=== PATIENT | female | born 1965 | race Two or more races ===

== ENCOUNTER 2017-03-31 12:34 | Emergency (ER) | payer SELFPAY ==
[2017-03-31 12:47] VITALS: BP 130/87; PULSE 73; TEMP 98; BMI 38.0
--- NOTE | 2017-03-31 13:35 | PDOC ---
History of Present Illness - General Chief Complaint: Back Pain Stated Complaint: PAIN Time Seen by Provider: 03/31/17 13:32 History Source: Patient Exam Limitations: No Limitations - History of Present Illness Initial Comments: 03/31/17 14:02 My chief complaint: Left-sided lower back pain radiating down her left leg to foot with tingling of foot since yesterday History of present illness: Patient is a 51 year old female with a history of iaj-vifmdlq-vwsvbwnyh diabetes, GERD, hypertension and gastric bypass 2 years ago here today complaining of left-sided lower back pain radiating down her left leg with tingling of her left foot after let lifting heavy bags yesterday on each hand. Patient denies any previous back issues. Patient denies any saddle anesthesia or any incontinency. Occurred: reports: yesterday Severity: reports: severe (left sided radiating down rt. leg to foot ) Pain Location: reports: back (left lower back down left leg to foot ) Method of Injury: Yes: other (lifted bags yesterday ) Modifying Factors: improves with: None Loss of Consciousness: no loss of consciousness Associated Symptoms (Fall): denies symptoms Past History - Past Medical History Allergies/Adverse Reactions: Allergies Allergy/AdvReac Type Severity Reaction Status Date / Time No Known Allergies Allergy Verified 03/31/17 12:38 Home Medications: Ambulatory Orders Cyclobenzaprine HCl [Flexeril -] 10 mg PO Q8H PRN #21 tablet 03/31/17 Diabetes: Yes HTN: Yes - Surgical History Abdominal Surgery: Yes (gastric bypass.) - Psycho/Social/Smoking Cessation Hx Suicidal Ideation: No Smoking History: Never smoked Review of Systems - Review of Systems Able to Perform ROS?: Yes Constitutional: No: Symptoms Reported HEENTM: No: Symptoms Reported Respiratory: No: Symptoms reported Cardiac (ROS): No: Symptoms Reported ABD/GI: No: Symptoms Reported : No: Symptoms Reported Musculoskeletal: Yes: Back Pain (left lumbar back pain radiates down left leg, tingling of foot) Integumentary: No: Symptoms Reported Neurological: Yes: Tingling (left foot) *Physical Exam - Vital Signs Last Vital Signs Temp Pulse Resp BP Pulse Ox 98 F 73 19 130/87 100 03/31/17 12:39 03/31/17 12:39 03/31/17 12:39 03/31/17 12:39 03/31/17 12:39 - Physical Exam General Appearance: Yes: Appropriately Dressed Respiratory/Chest: positive: Lungs Clear, Normal Breath Sounds. negative: Chest Tender, Respiratory Distress Cardiovascular: positive: Regular Rhythm, Regular Rate, S1, S2 Musculoskeletal: positive: Normal Inspection, Muscle Spasm (left lumbar paraspinal muscles). negative: CVA Tenderness, CVA Tenderness (R), CVA Tenderness (L), Decreased Range of Motion, Vertebral Tenderness Extremity: positive: Normal Capillary Refill, Normal Inspection. negative: Normal Range of Motion (with extension left leg at hip) Integumentary: positive: Normal Color Neurologic: positive: Alert (motor strength left leg 3/4), Normal Response, Respond to painful stimul (left leg/foot ), Responsive, Other (+ SLR left 30 degrees). negative: Numbness, Sensory Deficit (left leg) Deep Tendon Reflexes: Knee (L): 4+ Medical Decision Making - Medical Decision Making 03/31/17 14:03 Patient is a 51 year old female with a history of lha-sgylxro-pgpwyntks diabetes , GERD, hypertension and gastric bypass 2 years ago here today complaining of left-sided lower back pain radiating down her left leg with tingling of her left foot after let lifting heavy bags yesterday on each hand. Patient denies any previous back issues. Patient denies any saddle anesthesia or any incontinency. She took ibuprofen 1200 mg approximately one hour prior to arrival here. She reports the pain in her left lower back and down her leg is severe. Left lower back pain with radiculopathy left leg Plan: Valium 5 mg by mouth now Acetaminophen 975 mg by mouth now X-ray lumbar sacral spine no acute pathology appreciated per Dr. Kent 03/31/17 14:04 03/31/17 15:13 FLEXERIL 10 MG EVERY 8 HRS PRN MUSCLE SPASM # 20 TABS FOLLOW UP WITH ORTHOPEDIST 03/31/17 15:14 *DC/Admit/Observation/Transfer Diagnosis at time of Disposition: Lumbar pain with radiation down left leg - Discharge Dispostion Disposition: HOME Condition at time of disposition: Stable - Prescriptions Prescriptions: Cyclobenzaprine HCl [Flexeril -] 10 mg PO Q8H PRN #21 tablet PRN Reason: Muscle Spasms - Referrals Referrals: Hola Curry MD [Staff Physician] - - Patient Instructions Additional Instructions: Avoid carrying any items or doing any exercise or bending Follow up with orthopedist on 04/02/2017 for further evaluation Take ibuprofen as previously ordered for pain along with medication ordered today if you have any muscle spasm Return to emergency room if symptoms worsen or new symptoms develop Patient voiced understanding of discharge instructions and all questions were answered Evite llevar cualquier artculo o hacer cualquier ejercicio o doblar Seguimiento con ortopedista el 04/02/2017 para yany evaluacin posterior [place] ibuprofen gabrielle se orden anteriormente para el dolor junto con la medicaci n ordenada hoy si tiene cualquier espasmo muscular Regreso a la zia de emergencias si los sntomas empeoran o si aparecen nuevos s ntomas Comprensin del paciente sobre las instrucciones de sue y todas las preguntas fueron contestadas
[2017-03-31] MEDS ORDERED: ACETAMINOPHEN 325 MG TABLET (FP) PO ONE (13:55)
[2017-03-31] MEDS ORDERED: diazePAM 5 MG TABLET PO ONE (13:55)
[2017-03-31] MEDS ORDERED: ACETAMINOPHEN 325 MG TABLET (FP) ONE (13:57)
[2017-03-31] MEDS ORDERED: diazePAM 5 MG TABLET ONE (13:57)
== END 2017-03-31 16:06 | disposition home or self-care (01) ==
LOC: JER 12:34 → JERFT 12:34
DX: M54.16 Radiculopathy, lumbar region (principal); I10 Essential (primary) hypertension; E11.9 Type 2 diabetes mellitus without complications; Z79.84 Long term (current) use of oral hypoglycemic drugs; Z98.84 Bariatric surgery status
CPT/HCPCS: 72100-TC; 99281-25